=== PATIENT | female | born 1995 | race Caucasian/White ===

== ENCOUNTER 2018-10-13 18:16 | Emergency (ER) | payer OTHER ==
[~2018-10-13] VITALS: Ht 165.1 cm; Wt 79.4 kg
[~2018-10-13 18:16] MED LIST: PRENATAL TABLE1 EAC1 PO
== END 2018-10-13 22:10 | disposition home or self-care (01) ==
LOC: ER 18:16
DX: O23.42 Unspecified infection of urinary tract in pregnancy, second trimester (principal); Z34.02 Encounter for supervision of normal first pregnancy, second trimester

== ENCOUNTER 2019-02-11 16:09 | Inpatient (IN) | payer OTHER ==
[~2019-02-11] VITALS: Ht 165.1 cm; Wt 2.7 kg
[2019-02-11] MEDS ORDERED: PRENATAL TABLE1 EAC4 PO (17:44)
== END 2019-02-14 13:12 | disposition home or self-care (01) | DRG 788 ==
LOC: OB/GYN 16:09 → LDR 16:09 → OB/GYN 17:53
PROVIDERS: ADMIT Obstetrics & Gynecology
PROC: 4A1HXCZ Monitoring of Products of Conception, Cardiac Rate, External Approach (ICD-10-PCS; 2019-02-11)
PROC: 10D00Z1 Extraction of Products of Conception, Low, Open Approach (ICD-10-PCS; principal; 2019-02-11 14:30)
DX: O82 Encounter for cesarean delivery without indication (principal); O24.420 Gestational diabetes mellitus in childbirth, diet controlled; Z3A.38 38 weeks gestation of pregnancy; Z37.0 Single live birth

== ENCOUNTER 2019-03-22 13:40 | Emergency (ER) | payer OTHER ==
[~2019-03-22] VITALS: Ht 165.1 cm; Wt 99.8 kg
[~2019-03-22 13:40] MED LIST changes: +PRENATAL TABLE1 EAC4 PO
== END 2019-03-22 17:55 | disposition home or self-care (01) ==
LOC: ER 13:40
DX: K52.9 Noninfective gastroenteritis and colitis, unspecified (principal)